=== PATIENT | female | born 1960 | race Caucasian/White ===

== ENCOUNTER 2021-05-20 20:10 | Emergency (ER) | payer MEDICARE, OTHER ==
[~2021-05-20] VITALS: Ht 170.2 cm; Wt 81.6 kg
[2021-05-20] MEDS ORDERED: metformin (20:29)
[2021-05-20] MEDS ORDERED: losartan (20:29)
--- NOTE | 2021-05-20 20:48 | NUR ---
Dr. Corea at bedside for MSE.
--- NOTE | 2021-05-20 21:07 | NUR ---
Xray at bedside.
[2021-05-20] MEDS ORDERED: OXYCODONE/APAP 5-325 MG TABLET PO ONE (21:30)
[2021-05-20] MEDS ORDERED: OXYCODONE/APAP 5-325 MG TABLET ONE (21:30)
[2021-05-20] MEDS ORDERED: OXYC-128 PO (22:32)
[2021-05-20 22:37] VITALS: BP 135/78
--- NOTE | 2021-05-20 22:37 | NUR ---
Patient discharged to home in stable condition. Written and verbal after care instructions given. Patient verbalizes understanding of instructions. Stressed follow up or return to ER for worsening s/s. Pt out of ER with steady gait, no acute signs of distress, VSS, all belongings taken, instructed not to drive, to be driven home by son, provided with copies of xray results and CD.
== END 2021-05-20 22:38 | disposition home or self-care (01) ==
LOC: ER 20:13
DX: M17.12 Unilateral primary osteoarthritis, left knee (principal); M25.462 Effusion, left knee; E11.9 Type 2 diabetes mellitus without complications; M19.042 Primary osteoarthritis, left hand; M19.041 Primary osteoarthritis, right hand; Z79.84 Long term (current) use of oral hypoglycemic drugs
CPT/HCPCS: A4663

== ENCOUNTER 2021-07-16 20:25 | Emergency (ER) | payer MEDICARE, OTHER ==
[~2021-07-16] VITALS: Ht 172.7 cm; Wt 87.5 kg
[~2021-07-16 20:25] MED LIST: OXYC-128 PO; losartan; metformin
--- NOTE | 2021-07-16 21:30 | NUR ---
Dr. Corea at bedside for MSE.
[2021-07-16] MEDS ORDERED: MUPI22OI2 TP (21:52)
[2021-07-16] MEDS ORDERED: HYDR-500 GT (21:52)
[2021-07-16] MEDS ORDERED: AMOX-430 PO (21:52)
--- NOTE | 2021-07-16 21:58 | NUR ---
Patient discharged to home in stable condition. Written and verbal after care instructions given. Patient verbalizes understanding of instructions. Stressed follow up or return to ER for worsening s/s. Patient out of ER with steady gait, no acute signs of distress, VSS, all belongings taken.
[2021-07-16 21:59] VITALS: BP 121/76
== END 2021-07-16 21:59 | disposition home or self-care (01) ==
LOC: ER 20:26
DX: L98.499 Non-pressure chronic ulcer of skin of other sites with unspecified severity (principal); E11.9 Type 2 diabetes mellitus without complications; Z79.4 Long term (current) use of insulin
CPT/HCPCS: A4663

== ENCOUNTER 2021-12-17 19:57 | Emergency (ER) | payer MEDICARE, OTHER ==
[~2021-12-17] VITALS: Ht 172.7 cm; Wt 85.7 kg
[~2021-12-17 19:57] MED LIST changes: +AMOX-430 PO; +HYDR-500 GT; +MUPI22OI2 TP
--- NOTE | 2021-12-17 20:02 | NUR ---
PT AMULATED TO ER STEASDY GAIT, C/O VELAZQUEZ ON POSTERIOR HEAD X1 WEEK. A/O X4, CLEAR SPEECH, COMPLETE SENTENCES. NO SOB OR LABORED BREATHING, AFEBRILE. DENIES ANY CP/PRESSURE. NO GI/ DISTRESS. NO N/V/D. ALL PULSES PALPABLE. ABLE TO MOVE ALL EXTREMITIES WITHIN NORMAL LIMITS.
[2021-12-17] MEDS ORDERED: ONDANSETRON ODT 4 MG TAB.RAPDIS SL ONE (20:15)
[2021-12-17] MEDS ORDERED: HYDROCODONE/APAP 10-325 MG TABLET PO ONE (20:15)
--- NOTE | 2021-12-17 20:19 | NUR ---
DR. MARIA AT BEDSIDE, MSE IN PROGRESS.
[2021-12-17] MEDS ORDERED: ONDANSETRON ODT 4 MG TAB.RAPDIS ONE (20:33)
[2021-12-17] MEDS ORDERED: HYDROCODONE/APAP 10-325 MG TABLET ONE (20:33)
[2021-12-17 21:01] LABS: HEMATOCRIT 31.7 % (31.2-41.9); MEAN CORPUSCULAR HEMOGLOBIN 22.6 uug (24.7-32.8); MEAN CORPUSCULAR VOLUME 69.5 fL (75.5-95.3); PLATELET COUNT (AUTO) 73 K/uL (179-408)
[2021-12-17 21:03] LABS: CREATININE 0.7 mg/dL (0.6-1.3); POTASSIUM 3.7 mmol/L (3.5-5.1)
[2021-12-17 21:10] LABS: BILIRUBIN,TOTAL 0.4 mg/dL (0.2-1.0); TOTAL PROTEIN, SERUM 8.7 g/dL (6.4-8.2)
--- NOTE | 2021-12-17 21:10 | NUR ---
PT TAKEN FOR CT.
--- NOTE | 2021-12-17 21:30 | NUR ---
PT RETURNED FROM CT. STABLE CONDITION.
--- NOTE | 2021-12-17 22:43 | NUR ---
SAMANTHA PATTEN SPOKE WITH DIMITRY FOR CT DICTATION FOR F/U.
[2021-12-17] MEDS ORDERED: HYDR-4209 PO (22:47)
[2021-12-17] MEDS ORDERED: ONDA4TAB5 PO (22:47)
--- NOTE | 2021-12-17 22:57 | NUR ---
Patient discharged to home in stable condition. Written and verbal after care instructions given. Patient verbalizes understanding of instructions. Stressed follow up or return to ER for worsening s/s. Steady gait, no SOB or labored breathing. No changes in LOC. Accompanied by son.
[2021-12-17 22:58] VITALS: BP 118/72
== END 2021-12-17 22:58 | disposition home or self-care (01) ==
LOC: ER 19:59
DX: R51.9 Headache, unspecified (principal); E11.9 Type 2 diabetes mellitus without complications; Z79.4 Long term (current) use of insulin; M19.90 Unspecified osteoarthritis, unspecified site; R70.0 Elevated erythrocyte sedimentation rate
CPT/HCPCS: 36415; 70450; 85025; 85651; 85730; A4663; Q0162

== ENCOUNTER 2022-08-08 14:10 | Emergency (ER) | payer MEDICARE, OTHER ==
[~2022-08-08] VITALS: Ht 172.7 cm; Wt 90.7 kg
[~2022-08-08 14:10] MED LIST changes: +HYDR-4209 PO; +ONDA4TAB5 PO
--- NOTE | 2022-08-08 15:00 | NUR ---
Pt arrived accompanied by son with c/o low back pain, nonradiating, rated 8/10. Denies n/v, dizziness, headache. Pt's son stated that the pt had constipation and low back pain occured d/t valsalva manuever. Seen by [facility] for MSE.
[2022-08-08] MEDS ORDERED: TRAMADOL HCL 50 MG TABLET ONE (15:27)
[2022-08-08] MEDS ORDERED: METHOCARBAMOL 500 MG TABLET ONE (15:27)
[2022-08-08] MEDS ORDERED: METHOCARBAMOL 500 MG TABLET PO ONE (15:30)
[2022-08-08] MEDS ORDERED: TRAMADOL HCL 50 MG TABLET PO ONE (15:30)
[2022-08-08 15:48] LABS: CARBON DIOXIDE 31 mmol/L (21-32); CHLORIDE 100 mmol/L (98-107); CREATININE 0.8 mg/dL (0.6-1.3); GLUCOSE 136 mg/dL (74-106); POTASSIUM 3.7 mmol/L (3.5-5.1); UREA NITROGEN, BLOOD 17 mg/dL (7-18)
[2022-08-08 15:57] LABS: ALANINE AMINOTRANSFERASE 67 U/L (14-59); ALKALINE PHOSPHATASE 83 U/L (50-136); ASPARTATE AMINOTRANSFERASE 41 U/L (15-37); BILIRUBIN,DIRECT 0.1 mg/dL (0.0-0.2); BILIRUBIN,TOTAL 0.4 mg/dL (0.2-1.0); LIPASE 124 U/L (73-393); TOTAL PROTEIN, SERUM 8.6 g/dL (6.4-8.2)
[2022-08-08 15:58] LABS: *BILIRUBIN,URIN NEGATIVE (NEGATIVE); *BLOOD, URINE NEGATIVE (NEGATIVE); *CLARITY,URINE CLEAR (CLEAR); *COLOR,URINE YELLOW (YELLOW); *KETONES,URINE NEGATIVE (NEGATIVE); *UROBILINOGEN,URINE 0.2 E.U./dl (NORMAL); LEUKOCYTE ESTERASE ,URINE TRACE (NEGATIVE); NITRITE, URINE NEGATIVE (NEGATIVE); UGLUCOSE NEGATIVE (NEGATIVE)
[2022-08-08 16:02] LABS: HEMATOCRIT 32.6 % (31.2-41.9); MEAN CORPUSCULAR HEMOGLOBIN 22.8 uug (24.7-32.8); MEAN CORPUSCULAR VOLUME 71.4 fL (75.5-95.3); PLATELET COUNT (AUTO) 55 K/uL (179-408)
[2022-08-08] MEDS ORDERED: IOHEXOL 300MG/ML 100 ML INFUS..BTL ONE (16:07)
[2022-08-08] MEDS ORDERED: SWABABLE VALVE TRANSFER SET EA MC ONE (16:07)
[2022-08-08] MEDS ORDERED: IV NORMAL SALINE 250 ML IV ONE (16:07)
[2022-08-08 17:07] LABS: BACTERIA,URINE NONE SEEN /HPF (NONE SEEN); RBC,URINE 0-3 /HPF (0-3); SQUAMOUS EPITHELIAL CELL,UR FEW /HPF (NONE SEEN)
[2022-08-08] MEDS ORDERED: DOCU250C14 PO (17:22)
[2022-08-08] MEDS ORDERED: PSYL1POW MC (17:22)
--- NOTE | 2022-08-08 18:27 | NUR ---
Patient discharged to home in stable condition. Written and verbal after care instructions given. Patient verbalizes understanding of instructions. Stressed follow up or return to ER for worsening s/s.
== END 2022-08-08 18:25 | disposition home or self-care (01) ==
LOC: ER 14:10
DX: M54.50 Low back pain, unspecified (principal); K74.60 Unspecified cirrhosis of liver; K59.00 Constipation, unspecified; R10.9 Unspecified abdominal pain; D61.818 Other pancytopenia; R16.1 Splenomegaly, not elsewhere classified; E27.9 Disorder of adrenal gland, unspecified; E11.9 Type 2 diabetes mellitus without complications; Z79.84 Long term (current) use of oral hypoglycemic drugs; I10 Essential (primary) hypertension
CPT/HCPCS: 99285; 74177; 80076; 80048; 81001; 83690; 85025; 84484; 36415; Q9967

== ENCOUNTER 2025-04-19 17:47 | Emergency (ER) | payer MEDICARE, OTHER ==
[~2025-04-19] VITALS: Ht 170.2 cm; Wt 87.5 kg
[~2025-04-19 17:47] MED LIST changes: +DOCU250C14 PO; +PSYL1POW MC
[2025-04-19 17:55] VITALS: O2SAT 99
[2025-04-19] MEDS ORDERED: GLIP1TAB6 PO (18:09)
[2025-04-19] MEDS ORDERED: LOSA1TAB39 PO (18:09)
== END 2025-04-19 18:42 | disposition home or self-care (01) ==
LOC: ER 17:58
DX: S46.812A Strain of other muscles, fascia and tendons at shoulder and upper arm level, left arm, initial encounter (principal); I10 Essential (primary) hypertension; E11.9 Type 2 diabetes mellitus without complications; M19.90 Unspecified osteoarthritis, unspecified site; Z79.4 Long term (current) use of insulin; Z79.84 Long term (current) use of oral hypoglycemic drugs; Z79.899 Other long term (current) drug therapy; X58.XXXA Exposure to other specified factors, initial encounter; Y93.89 Activity, other specified; Y92.89 Other specified places as the place of occurrence of the external cause; Y99.8 Other external cause status
CPT/HCPCS: 73030; A4606; A4663

== ENCOUNTER 2025-09-18 09:08 | Emergency (ER) | payer MEDICARE, OTHER ==
[~2025-09-18] VITALS: Ht 172.7 cm; Wt 88.0 kg
[~2025-09-18 09:08] MED LIST changes: +AMOX-319 PO; -AMOX-430 PO; +GLIP1TAB6 PO; +LOSA1TAB39 PO
[2025-09-18 09:16] VITALS: BP 138/63
[2025-09-18] MEDS ORDERED: HYDR-501 PO (10:02)
[2025-09-18 10:33] VITALS: BP 138/63; TEMP 98; O2SAT 98
== END 2025-09-18 10:33 | disposition home or self-care (01) ==
LOC: ER 09:08
DX: L23.9 Allergic contact dermatitis, unspecified cause (principal); K74.60 Unspecified cirrhosis of liver; I11.9 Hypertensive heart disease without heart failure; E11.9 Type 2 diabetes mellitus without complications; M19.90 Unspecified osteoarthritis, unspecified site; Z79.4 Long term (current) use of insulin; Z79.84 Long term (current) use of oral hypoglycemic drugs; Z79.899 Other long term (current) drug therapy
CPT/HCPCS: A4606; A4663